=== PATIENT | female | born 1990 | race Caucasian/White ===

== ENCOUNTER 2022-05-14 07:40 | Inpatient (IN) ==
[2022-05-14] MEDS ORDERED: LIDOCAINE 1% LOCAL 20 ML VIAL INFIL PRN (07:47)
[2022-05-14] MEDS ORDERED: OXYTOCIN 30 UNITS/500 ML BAG IV PRN ×3 (07:47→14:53)
--- NOTE | 2022-05-14 08:05 | History & Physical Report ---
Date of Service May 14, 2022 Assessment & Plan (1) Encounter for supervision of normal intrauterine in primigravida, antepartum: Plan: Admit for IOL. Calderon bulb came out just prior to cervix exam. Pitocin. Admission and Anticipated Discharge Date Admission Date: May 14, 2022 History of Present Illness Chief Complaint: IOL Primary Care Provider: NO PCP 31yo @ 41 0/7 Flu vaccine given 01/19/22- MK Early pyelectasis resolved at 29 week U/S Lt EIF, neg CF testing Postdates induction scheduled for may 14 Allergies Allergy/AdvReac Type Severity Reaction Status Date / Time No Known Allergies Allergy Verified 05/13/22 19:26 Home Medications Medication Instructions Recorded Confirmed Type prenat.vits,norris,[id number] 1 tab PO DAILY 01/18/22 05/13/22 History Patient History Medical History (Updated 05/13/22 @ 19:26 by Genesis Spencer, JENN) No known health problems Surgical History Hx of tonsillectomy [place] teeth removed Family History Grandmother (Maternal) Ovarian cancer Grandfather Heart disease Denies family history of Prostate cancer Breast cancer Colorectal cancer Social History (Updated 01/18/22 @ 13:43 by Tomasa Ventura RN) Smoking Status: Never smoker Second Hand Exposure: No; Hx Alcohol Use: No Hx Substance Use: No Preferred Language: Japanese Communication Ability: Effective Visual Impairment: No Limitations Hearing Ability: Normal Beliefs That Will Affect Care: None marital status: marital status details: oCn Rueda (31) [phone] Current Living Situation: Spouse Current Living Situation Comment: lives with and 1 dog current occupational status: employed current occupation: meterologist- [employer] Feels Safe at Home: Yes Review of Systems All systems reviewed & are unremarkable except as noted in HPI & below Physical Exam Physical Exam: FHT Cat 1 [place] Q 4, not feeling these SVE /-2 Constitutional: WD/WN, vitals as above Respiratory: normal respiratory effort, lungs clear to auscultation no respiratory distress Cardiovascular: Rate/Rhythm: regular rate and regular rhythm Gastrointestinal (Abdomen): Inspection/Auscultation: abdomen normal to inspection Percussion/Palpation: abdomen soft; abdomen nontender Gravid. No s/s chorio or abruption. Skin: no rashes, warm and dry Psychiatric: A+Ox3, euthymic affect Results & Data ([facility]) Vital Signs (Past 12 Hours) Vital Signs Pulse BP 05/14/22 08:00 79 117/75 Coding Level of Care Code None Diagnoses Encounter for supervision of normal intrauterine in primigravida, antepartum Z34.00
[2022-05-14 08:16] LABS: Hematocrit (blood only) 38.5 % (37.0-47.0); Hemoglobin 13.8 g/dl (12.0-16.0); Mean Corpuscular Hemoglobin 33.7 pg (25.0-34.0); Mean Corpuscular Hgb Conc 35.8 g/dL (32.0-36.0); Mean Corpuscular Volume 93.9 fL (80.0-100.0); Platelet Count 108 K/uL (130-400); RDW Standard Deviation 41.5 fL (36.4-46.3); White Blood Count 10.72 K/ul (4.8-10.8)
[2022-05-14] MEDS: LACTATED RINGER'S 1,000 ML IV PRN ×2 (08:58→12:00)
[2022-05-14] MEDS ORDERED: BUPIVACAINE 0.25% 30 ML VIAL ONE (11:16)
[2022-05-14] MEDS ORDERED: LIDOCAINE 2%/EPINEPHRINE 1:200,000 20 ML SDV ONE (11:16)
[2022-05-14] MEDS ORDERED: SODIUM CHLORIDE 0.9% INJ 10 ML VIAL ONE (11:16)
[2022-05-14] MEDS ORDERED: fentaNYL citrate 100 MCG/2 ML VIAL ONE (11:16)
[2022-05-14] MEDS ORDERED: ePHEDrine sulfate 50 MG/ML AMP ONE (11:16)
[2022-05-14] MEDS ORDERED: fentaNYL 2MCG/ML ROPIVACAINE 1.25MG/ML 100 ML BAG EPI ONE (11:16)
[2022-05-14] MEDS ORDERED: ePHEDrine sulfate 50 MG/ML AMP IV PRN (11:38)
[2022-05-14] MEDS ORDERED: diphenhydrAMINE 50 MG/ML VIAL IV PRN (11:38)
[2022-05-14] MEDS ORDERED: NALOXONE HCL 1 MG in SODIUM CHLORIDE 0.9% 1000ML 1,000 ML IV PRN (11:38)
[2022-05-14] MEDS ORDERED: NALBUPHINE HCL INJ 10 MG/ML AMP IV PRN (11:38)
[2022-05-14] MEDS ORDERED: ONDANSETRON INJ 2 MG/ML 2 ML VIAL IV PRN (11:38)
[2022-05-14] MEDS ORDERED: fentaNYL 2MCG/ML ROPIVACAINE 1.25MG/ML 100 ML BAG EPI PRN (11:38)
[2022-05-14] MEDS ORDERED: NALOXONE HCL 0.4 MG/1 ML VIAL/CARP IV PRN (11:38)
--- NOTE | 2022-05-14 11:38 | Anesthesiology Consultation ---
Date of Service May 14, 2022 Assessment & Plan ASA ASA2 Proposed Anesthesia Anesthesia Type: Labor Epidural Risk / Benefits Reviewed With: PT / POA / Parent / Guardian, Accepts Plan and Informed Consent Obtained History Height/Weight Height: 5 ft 6 in Weight: 79.379 kg Allergies Allergy/AdvReac Type Severity Reaction Status Date / Time No Known Allergies Allergy Verified 05/13/22 19:26 Medications Home Medications Medication Instructions Recorded Confirmed Last Taken prenat.vits,norris,[id number] 1 tab PO DAILY 01/18/22 05/14/22 05/14/22 Active Medications Generic Name Dose Route Start Last Admin Trade Name Freq PRN Reason Stop Dose Admin Oxytocin 30 units in 500 mls @ 5 mls/hr 05/14/22 07:47 05/14/22 10:01 Pitocin IV 05/16/22 07:46 0.3 units/hr .Q24H PRN 5 mls/hr Labor Induction/Augmentation Titration Protocol 0.3 UNITS/HR Lactated Ringer's 1,000 mls @ 125 mls/hr 05/14/22 07:47 05/14/22 12:00 Lr IV 05/16/22 07:46 125 mls/hr .Q8H PRN Administration L&D Protocol Protocol Ropivacaine 100 ml 05/14/22 11:38 05/14/22 12:00 Fentanyl 2mcg/Ml Ropivacaine 1.25mg/Ml 100 Ml Bag EPI 05/15/22 11:37 100 ml PRN PRN Administration Pain R/T Labor Protocol Past Medical History Medical History No known health problems Exercise / Class Metabolic Activity II 4-5 Yardwork/Stairs/Walk up hill Past Family History Family History Grandmother (Maternal) Ovarian cancer Grandfather Heart disease Denies family history of Prostate cancer Breast cancer Colorectal cancer Past Surgical History Surgical History Hx of tonsillectomy [place] teeth removed Past Anesthesia History No Hx of Anesthesia Complications and No Family Hx of Anesthesia Complications History of PONV No Hx of PONV and No Hx of Motion Sickness Social History Smoking Status: Never smoker Hx Alcohol Use: No Hx Substance Use: No substance use type: does not use Review of Systems denies fever/cough/ colds/ chest pain/ SOB/ AZRA denies AZRA Physical Exam Vital Signs Last Vital Signs Temp 36.7 C 05/14/22 08:12 Pulse 82 05/14/22 12:07 Resp 18 05/14/22 10:00 BP 110/58 L 05/14/22 12:07 Pulse Ox 99 05/14/22 12:03 ENMT Mouth: no TMJ abnormality and no dentition abnormality Thyromental Distance: > or= 3.5 Finger Breadths Mallampati Class: II Neck neck extension not limited Respiratory normal respiratory effort; no respiratory distress Auscultation: lungs clear to auscultation bilaterally Cardiovascular Rate/Rhythm: regular rate and regular rhythm Neurologic moves all extremities Psychiatric Orientation: alert and oriented x 3 Testing Laboratory Results 05/14/22 08:00
--- NOTE | 2022-05-14 14:21 | Communication Note ---
Date of Service: May 14, 2022 asked to evaluate pt after epidural placement because of right eyelid droop. pt had an uneventful epidural placed and the epidural is functioning well. pt exhibiting no signs of interthecal or high level epidural. hands and arms are uneffected. Pt does have a slight droop of her right eyelid. the rest of her facial muscles are intact. pupils are grossly equal. speech is intact. There are some case reports of Alexandra's syndrome after epidural placement but usually in connection to dosing for csections. Pt has no other symptoms and is happy with her pain control. I would not stop the epidural or replace it at this time because of the current benefit to the patient. If this is alexandra's syndrome from epidural placement, it should resolve with epidural removal. I did ask that the patient be evaluated by the covering Ob because they are the primary provider.
--- NOTE | 2022-05-14 14:48 | Delivery Summary ---
Vaginal Delivery Summary Date of Service May 14, 2022 Vaginal Delivery Summary Called to see patient due to bulging membranes at introitus. AROM, with notable meconium. C/C/+3. The patient pushed to deliver a viable male Apgars 8 and 9 via over intact perineum. Mouth and nose bulb suctioned at perineum. Loose nuchal x 1 noted and delivered through. Shoulders and body delivered with ease. was vigorous and crying at . Cord clamped at 30 seconds of life and infant to maternal abdomen where the cord was then doubly clamped and cut. Placenta delivered spontaneously and intact, three-vessel cord. Hemostasis achieved with dilute pitocin and uterine massage and drainage of the bladder for approximately 300 cc under sterile conditions. Small left labia laceration and vaginal laceration noted and stitched with 3-0 vicryl for excellent hemostasis. Cervix and sulci intact. EBL 300 cc. Mother and baby stable in recovery. [facility] Vaginal Delivery Charge Delivery Type Details:
[2022-05-14] MEDS ORDERED: bisacodyL 10 MG SUPP PR PRN (14:53)
[2022-05-14] MEDS ORDERED: HYDROCORTISONE ACETATE 25 MG SUPP PR PRN (14:53)
[2022-05-14] MEDS ORDERED: DIPHTHERIA/TETANUS/PERTUSSIS 0.5mL SYR/VIAL (Age 7+yrs) IM ONE (14:53)
[2022-05-14] MEDS ORDERED: BENZOCAINE 20% AER SPR 82.5 GM CAN EXT PRN (14:53)
[2022-05-14] MEDS ORDERED: oxyCODONE/ACETAMINOPHEN 5mg/325mg TAB PO PRN (14:53)
[2022-05-14] MEDS ORDERED: OXYTOCIN 20 UNITS in LACTATED RINGER'S 1,000 ML IV SCH (15:00)
--- NOTE | 2022-05-14 15:17 | Anesthesia Procedure Note ---
Date of Service May 14, 2022 Anesthesia Post Epidural Note Vital Signs Vital Signs: Temp Pulse Resp BP Pulse Ox 36.9 C 77 20 117/67 97 05/14/22 12:00 05/14/22 15:06 05/14/22 14:51 05/14/22 15:06 05/14/22 14:33 Notes Mental Status: alert / awake / arousable and participated in evaluation Nausea / Vomiting: adequately controlled Pain: adequately controlled Airway Patency, RR, SpO2: stable & adequate BP & HR: stable & adequate Hydration State: stable & adequate Anesthetic Complications: no major complications apparent and Pt Satisfied with anesthetic care Epidural: Removed without complications and With tip intact
[2022-05-14] MEDS: IBUPROFEN 600 MG TAB PO PRN ×2 (16:14→21:00)
[2022-05-14] MEDS: ACETAMINOPHEN 325 MG TAB PO PRN ×2 (18:19→23:50)
[2022-05-14] MEDS: DOCUSATE SODIUM 100 MG CAP PO SCH (21:00)
[2022-05-15] MEDS: IBUPROFEN 600 MG TAB PO PRN ×5 (02:46→20:06)
[2022-05-15] MEDS: ACETAMINOPHEN 325 MG TAB PO PRN ×3 (06:04→18:10)
[2022-05-15 06:29] LABS: Hematocrit (blood only) 41.1 % (37.0-47.0); Hemoglobin 14.6 g/dl (12.0-16.0); Mean Corpuscular Hemoglobin 33.5 pg (25.0-34.0); Mean Corpuscular Hgb Conc 35.5 g/dL (32.0-36.0); Mean Corpuscular Volume 94.3 fL (80.0-100.0); Mean Platelet Volume 12.7 fL (9.4-12.4); Platelet Count 114 K/uL (130-400); RDW Coefficient of Variation 11.9 % (11.5-14.5); RDW Standard Deviation 41.7 fL (36.4-46.3); Red Blood Count 4.36 M/uL (4.20-5.40); White Blood Count 14.04 K/ul (4.8-10.8)
--- NOTE | 2022-05-15 07:33 | Obstetrical Progress Note ---
Date of Service May 15, 2022 Assessment & Plan (1) care and examination: Plan stable, doing well pp, routine care. rh pos/ri/. Day #:: 1 Subjective Ambulation: ambulating normally Voiding: no voiding problems Diet Tolerance:: regular diet Lochia:: Small Feeding Type:: breast feeding denies pain issues. Physical Exam Constitutional WD/WN, vitals as above Respiratory normal respiratory effort, lungs clear to auscultation Cardiovascular Rate/Rhythm: regular rate and regular rhythm Gastrointestinal (Abdomen) Inspection/Auscultation: abdomen normal to inspection Percussion/Palpation: abdomen soft Fundus firm 1cm down Musculoskeletal nt calves no edema Neurologic grossly normal Psychiatric A+Ox3, euthymic affect Results & Data ([facility]) Vital Signs (Past 12 Hours) Vital Signs Temp Pulse Resp BP Pulse Ox O2 Del Method 05/15/22 02:53 97.7 F 70 18 109/71 97 Room Air 05/14/22 23:43 97.9 F 56 L 16 117/74 97 Room Air 05/14/22 20:10 97.7 F 73 20 115/75 96 Room Air
[2022-05-15] MEDS: DOCUSATE SODIUM 100 MG CAP PO SCH ×2 (09:36→20:06)
[2022-05-15] MEDS: PRENATAL VITAMIN 1 TAB PO SCH (09:42)
[2022-05-15] MEDS ORDERED: bisacodyL 5 MG TABEC PO SCH (20:00)
[2022-05-16] MEDS: IBUPROFEN 600 MG TAB PO PRN ×2 (02:18→08:28)
[2022-05-16] MEDS: ACETAMINOPHEN 325 MG TAB PO PRN (05:49)
--- NOTE | 2022-05-16 06:06 | Obstetrical Progress Note ---
Date of Service <Laverne Pelaez - Last Filed: 05/16/22 07:05> May 16, 2022 Assessment & Plan <Laverne Pelaez DO - Last Filed: 05/16/22 07:05> (1) care and examination: continue OOB, ambulation, diet as tolerated Post f/u at 6 weeks discharge instructions reviewed <Luis Lott MD, FACOG - Last Filed: 05/16/22 07:17> (1) care and examination: Subjective <Laverne Pelaez - Last Filed: 05/16/22 07:05> Angie is a 31 y/o female who is now PPD # 2 following vaginal delivery at 41 weeks. Reports feeling well overall this morning. Mild abdominal cramping, pain well managed on analgesics. Voiding. Tolerating meals overnight and able to ambulate some. Some persistent lochia with some improvement this morning. Breast feeding. Review of Systems Denies fever, chills, sweats Denies shortness of breath, difficulty breathing, chest pain, palpitations, chest pressure. Denies breast pain. Denies dysuria. Denies headache or changes in vision. Physical Exam <Laverne Pelaez - Last Filed: 05/16/22 07:05> General: Alert, oriented. No acute distress. Cardiac: Regular rate and rhythm, no murmurs/rubs/gallops. Respiratory: Clear to auscultation bilaterally a/p, no wheezes/rales/rhonchi. No increased work of breathing. Symmetrical chest rise. No respiratory distress. Abdomen: Soft, nontender, nondistended. Uterus: Uterine fundus firm, palpable 2 cm below umbilicus. Lower Extremities: No lower extremity edema or swelling. No deep calf pain. Juan Luis's negative bilaterally. Results & Data ([facility]) <Laverne Pelaez - Last Filed: 05/16/22 07:05> Vital Signs (Past 12 Hours) Vital Signs Temp Pulse Resp BP O2 Del Method 05/16/22 02:20 36.5 C 75 18 130/74 Room Air 05/15/22 20:14 36.5 C 78 18 132/83 Room Air <Luis Lott MD, FACOG - Last Filed: 05/16/22 07:17> Co-Signing Physician Notes Resident Physician Supervision Note: I was present with Dr. Pelaez during the history and exam. I discussed the case with the resident and agree with the findings and plan as documented in the note. Any exceptions or clarifications are listed here: [None] Documented By: Luis Lott MD, FACOG Resident Activity Tracking <Laverne Pelaez DO - Last Filed: 05/16/22 07:05> Resident Involvement: Resident Care Provided Care Provided: OB Delivery (Post )
[2022-05-16] MEDS: DOCUSATE SODIUM 100 MG CAP PO SCH (08:29)
[2022-05-16] MEDS: PRENATAL VITAMIN 1 TAB PO SCH (10:22)
== END 2022-05-16 11:24 | disposition home or self-care (01) | DRG 807 ==
LOC: 4S1 07:40 → 4E2 17:31